=== PATIENT | female | born 1980 | race Two or more races ===

== ENCOUNTER 2017-07-30 22:09 | Inpatient (IN) | payer OTHER ==
[~2017-07-30] VITALS: Ht 160 cm; Wt 71.1 kg
[2017-07-30] MEDS ORDERED: DIVA250T7 (22:19)
[2017-07-30] MEDS ORDERED: QUET1TAB8 PO (22:19)
[2017-07-30] MEDS ORDERED: TRIA1OI EXT (22:19)
[2017-07-30] MEDS ORDERED: OMEP20CA3 PO (22:19)
[2017-07-30] MEDS ORDERED: PANTOPRAZOLE 40MG INJ (PROTONIX) (C9113) IV ONE (22:45)
[2017-07-30] MEDS ORDERED: ONDANSETRON 4MG/2ML VIAL (J2405) IV ONE (22:45)
[2017-07-30] MEDS ORDERED: NS 1,000 ML IV ONE (22:45)
[2017-07-30 22:53] LABS: BASO # 0.1 10^3/uL (0.0-0.2); BASO % 0.6 % (0.0-1.0); EOS # 0.2 10^3/uL (0.0-0.50); LYMPH # 2.7 10^3/uL (1.5-4.5); LYMPH % 17.3 % (24.0-44.0); MEAN CORPUSCULAR HEMOGLOBIN 30.8 pg (27.0-33.0); MEAN CORPUSCULAR HGB CONC 35.1 g/dl (32.0-36.5); MEAN CORPUSCULAR VOLUME 87.7 fl (80.0-96.0); MONO # 0.7 10^3/uL (0.0-0.8); MONO % 4.4 % (0.0-5.0); NEUTROPHILS # 11.7 10^3/uL (1.8-7.7); NEUTROPHILS % 75.7 % (36.0-66.0); PLATELET COUNT, AUTOMATED 305 10^3/uL (150-450); WHITE BLOOD COUNT 15.4 10^3/uL (4.0-10.0)
[2017-07-30 23:09] LABS: CONTROL LINE HCG INT CTR LINE PRESENT
[2017-07-30 23:17] LABS: ALBUMIN 4.4 GM/DL (3.2-5.2); ALBUMIN/GLOBULIN RATIO 1.13 (1.00-1.93); ALKALINE PHOSPHATASE 134 U/L (45-117); ALT/SGPT 62 U/L (12-78); AMYLASE 71 U/L (25-115); ANION GAP 8 MEQ/L (8-16); AST/SGOT 30 U/L (7-37); BILIRUBIN,DIRECT < 0.1 MG/DL (0.0-0.2); BILIRUBIN,TOTAL 0.4 MG/DL (0.2-1.0); BLOOD UREA NITROGEN 8 MG/DL (7-18); CALCIUM LEVEL 9.1 MG/DL (8.5-10.1); CARBON DIOXIDE LEVEL 29 MEQ/L (21-32); CHLORIDE LEVEL 104 MEQ/L (98-107); GLOMERULAR FILTRATION RATE > 60.0 (>60); GLUCOSE, FASTING 131 MG/DL (70-105); POTASSIUM SERUM 4.2 MEQ/L (3.5-5.1); SODIUM LEVEL 141 MEQ/L (136-145); TOTAL PROTEIN 8.3 GM/DL (6.4-8.2)
[2017-07-30] MEDS ORDERED: MORPHINE 4 MG/ML 1ML SYRINGE IV ONE (23:30)
[2017-07-30] MEDS ORDERED: GI COCKTAIL 50ML BTL(HYOSCYAMINE/MAALOX/LIDOCAINE VISCOUS)(1:3:1) PO ONE (23:30)
[2017-07-31] MEDS ORDERED: MORPHINE 4 MG/ML 1ML SYRINGE IV ONE ×2 (01:15→02:45)
[2017-07-31] MEDS ORDERED: ISOVUE-370 76% 100ML VIAL (Q9967) As Ordered ONE (01:15)
[2017-07-31] MEDS ORDERED: METOCLOPRAMIDE INJ 10MG/2ML VIAL (J2765) IV ONE (01:15)
[2017-07-31] MEDS ORDERED: MORPHINE 2 MG/ML 1ML SYRINGE IV ONE (05:30)
[2017-07-31] MEDS ORDERED: PROMETHAZINE INJ 25 MG/ML VIAL (J2550) IV ONE (05:30)
[2017-07-31] MEDS: NS 1,000 ML IV SCH ×3 (06:19→20:05)
[2017-07-31 06:26] LABS: BASO # 0.1 10^3/uL (0.0-0.2); BASO % 0.4 % (0.0-1.0); EOS % 0.2 % (0.0-3.0); IMMATURE GRANULOCYTE % 0.7 % (0-0); LYMPH # 1.8 10^3/uL (1.5-4.5); LYMPH % 13.9 % (24.0-44.0); MEAN CORPUSCULAR HEMOGLOBIN 30.6 pg (27.0-33.0); MEAN CORPUSCULAR HGB CONC 35.1 g/dl (32.0-36.5); MEAN CORPUSCULAR VOLUME 87.4 fl (80.0-96.0); MONO # 0.4 10^3/uL (0.0-0.8); MONO % 3.3 % (0.0-5.0); NEUTROPHILS # 10.7 10^3/uL (1.8-7.7); NEUTROPHILS % 81.5 % (36.0-66.0); PLATELET COUNT, AUTOMATED 286 10^3/uL (150-450); RED CELL DISTRIBUTION WIDTH 12.9 % (11.5-14.5); WHITE BLOOD COUNT 13.1 10^3/uL (4.0-10.0)
[2017-07-31 06:51] LABS: ALBUMIN 3.8 GM/DL (3.2-5.2); ALBUMIN/GLOBULIN RATIO 1.06 (1.00-1.93); ALKALINE PHOSPHATASE 111 U/L (45-117); ALT/SGPT 58 U/L (12-78); ANION GAP 10 MEQ/L (8-16); AST/SGOT 31 U/L (7-37); BILIRUBIN,TOTAL 0.4 MG/DL (0.2-1.0); BLOOD UREA NITROGEN 7 MG/DL (7-18); CALCIUM LEVEL 8.3 MG/DL (8.5-10.1); CARBON DIOXIDE LEVEL 25 MEQ/L (21-32); CHLORIDE LEVEL 107 MEQ/L (98-107); CREATININE FOR GFR 0.69 MG/DL (0.55-1.02); GLOMERULAR FILTRATION RATE > 60.0 (>60); GLUCOSE, FASTING 129 MG/DL (70-105); POTASSIUM SERUM 4.1 MEQ/L (3.5-5.1); SODIUM LEVEL 142 MEQ/L (136-145); TOTAL PROTEIN 7.4 GM/DL (6.4-8.2)
--- NOTE | 2017-07-31 07:44 | HPE ---
DATE OF ADMISSION: 07/31/2017 Ms. Reynaga is a patient of [facility]. CHIEF COMPLAINT: Is abdominal pain. HISTORY OF PRESENT ILLNESS: This is 36-year-old ate at [employer] last evening. She thought that her soup tasted funny and so she ate only half of it. Upon leaving [employer] around 30 minutes later, developed cold sweats, crampy abdominal pain. She has vomited multiple, multiple times and had uncontrolled pain. She presented to the emergency department. Had a CT scan which was reviewed by the emergency room provider and the surgeon, and showed evidence of gastroenteritis. No evidence of obstruction and I was called for admission. Currently, she is still having abdominal pain, which she describes as a 6 out of 10 right now, last pain medication was at 2:45 a.m. She is nauseous. Has not had any loose bowel movements. Has had a soft bowel movement since she has been here. PAST MEDICAL HISTORY: Ectopic . Tubal ligation. Bipolar and depression. SOCIAL HISTORY: She smokes half a pack a day. She drinks alcohol. She is originally from [facility]. FAMILY HISTORY: Notable for her mother with diabetes. ALLERGIES: She has an allergy listed to amoxicillin. HOME MEDICATIONS: - omeprazole - quetiapine - triamcinolone cream for a rash. REVIEW OF SYSTEMS: Notable for no headache. No visual changes. She currently has a sore throat after vomiting. No neck pain. No cough. No shortness of breath. Otherwise is unremarkable. PHYSICAL EXAMINATION: Temperature 97.4, pulse 81, respiratory rate 18, blood pressure 119/55, 95% in room air. Input and output are not yet calculated. Weight 68.6 kg. Body mass index 26.8. She is awake. Appears quite anxious. Head is normocephalic. Sinus nontender. Pupils equal and reactive. Mucous membranes moist. Posterior oropharynx is quite erythematous without exudate. Neck is supple. No cervical or supraclavicular adenopathy. Breathing is symmetrical and rested. Heart is in a regular rhythm, not tachycardic. Radial pulses 2+. Capillary refill time less than 2 seconds. Abdomen is notable for hypoactive bowel sounds. Mild diffuse tenderness without rebound or guarding. Nondistended. No lower extremity edema. Labs available to review. White count 15.4, hemoglobin 16, and platelets of 3056. BUN is 8, creatinine 0.8, glucose 113. Alkaline phosphatase 134, total protein 8.3 with an albumin 4.4, lipase 135. HCG is negative. CT of he abdomen and pelvis shows partial small bowel obstruction, which does not match local interpretation by the general surgeon. ASSESSMENT: 36-year-old with suspected gastroenteritis, possibly developing ileus. The patient will be admitted for a two midnight hospital stay. PLAN: 1. GI: The patient will be nothing by mouth. Will be given pain medicine and antiemetics, IV fluids, and monitor clinically. 2. The patient has a history of an ectopic but hCG is negative. 3. The patient has underlying bipolar disorder and appears quite anxious, which is understandable in this setting. Will continue her home medications if she is able to keep them down. 4. The patient has an interesting gap noted between her total protein and albumin which is likely related to her vomiting but that warrants further workup if it persists. 5. The patient has an elevated white cell count, which is most likely reactive. 6. Deep venous thrombosis prophylaxis is ordered.
[2017-07-31] MEDS: MORPHINE 2 MG/ML 1ML SYRINGE IV PRN ×3 (08:28→19:06)
[2017-07-31] MEDS: NICOTINE 7 MG/24 HR TRANSDERMAL TD SCH (08:52)
[2017-07-31] MEDS: HEPARIN SOD (PORCINE) 5000 UNITS/ML VIAL SC SCH ×2 (08:52→20:03)
--- NOTE | 2017-07-31 09:10 | REP ---
ABDOMINAL SERIES: Supine and erect views of the right abdomen demonstrate no evidence of free intraperitoneal air and no compelling evidence for obstruction. There is a phlebolith in the right pelvis. The visualized osseous structures are unremarkable. An accompanying view of the chest demonstrates no acute infiltrate. The heart is normal in size. IMPRESSION: No evidence of free air or obstruction. Signed by Sabino Hays MD 07/31/2017 11:52 A
--- NOTE | 2017-07-31 09:48 | REPUSA ---
CLINICAL HISTORY: Abdominal pain. TECHNIQUE: Multiple axial, sagittal and coronal CT images were obtained through the abdomen and pelvi s after administration of oral and intravenous contrast material. COMMENTS: Comparison to prior exam on 04/04/2016. Fluid-filled mildly distended stomach. Fluid-filled dilated small bowel loops. Transition zone in the left lower quadrant. The liver is of uniform attenuation without mass or defect. There is no intra or extrahepatic biliary ductal dilatation. The spleen is normal. The gallbladder is within normal limits. The pancreas is of normal contour and attenuation characteristics. There is no evidence of adrenal mass. Both kidneys demonstrate prompt and equal nephrograms. The kidneys are normal in size, shape and conf iguration. There is no evidence of renal or ureteral mass. No renal or ureteral calculi are identifie d. There is no hydroureter or hydronephrosis. No evidence for appendicitis. There is no evidence of abdominal ascites or lymphadenopathy. There is no evidence of intrinsic or extrinsic bladder mass. There is no pelvic ascites or lymphadeno benoit. Images of the lung bases show no evidence of pleural or parenchymal mass. There are no pleural effusi ons. The bony structures are free of lytic or blastic lesions. Multilevel degenerative changes are seen in volving the thoracolumbar spine. Scattered calcifications are seen involving the aorta and major bran ches compatible with atherosclerosis. IMPRESSION: Partial small bowel obstruction. Transition zone in the left lower quadrant. No bowel perforation or pneumatosis intestinalis. Thank you for your kind referral of this patient.
[2017-07-31 11:18] VITALS: BP 134/66
[2017-07-31 14:00] VITALS: BP 138/87
[2017-07-31] MEDS: ONDANSETRON 4MG/2ML VIAL (J2405) IV PRN ×2 (14:03→20:03)
[2017-07-31 15:40] VITALS: BP 129/80
[2017-07-31] MEDS: QUEtiapine FUMARATE 100 MG TAB PO SCH (20:03)
[2017-07-31] MEDS: TRIAMCINOLONE ACET 0.1% OINTMENT 15 GM EXT SCH (20:04)
[2017-07-31 22:00] VITALS: BP 112/84
--- NOTE | 2017-08-01 01:23 | ECGEPIP ---
Stationary ECG Study [facility] Test Date: 2017-07-31 Pat Name: RICHELLE CHAVEZ Department: Room: [place] [address] Gender: F [employer]: VIRY : 1980 Requested By: SALEEM Xie Order Number: [id number] Reading MD: Saleem Romo Measurements Intervals Tell Rate: 88 P: 47 VT: 125 QRS: 39 QRSD: 98 T: 12 QT: 393 QTc: 476 Interpretive Statements SINUS RHYTHM Prolonged QTc Comparison tracing not on file Electronically Signed On 08-01-2017 1:23:16 EST by Saleem Romo
[2017-08-01 06:00] VITALS: BP 128/75
[2017-08-01 06:00] LABS: MEAN CORPUSCULAR HEMOGLOBIN 30.2 pg (27.0-33.0); MEAN CORPUSCULAR HGB CONC 34.5 g/dl (32.0-36.5); MEAN CORPUSCULAR VOLUME 87.5 fl (80.0-96.0); PLATELET COUNT, AUTOMATED 224 10^3/uL (150-450); RED CELL DISTRIBUTION WIDTH 13.1 % (11.5-14.5); WHITE BLOOD COUNT 8.4 10^3/uL (4.0-10.0)
[2017-08-01] MEDS: ACETAMINOPHEN TAB 650MG DOSE (2X325MG) PO PRN ×4 (06:05→17:45)
[2017-08-01] MEDS: NS 1,000 ML IV SCH (06:08)
[2017-08-01 06:24] LABS: ALBUMIN 3.1 GM/DL (3.2-5.2); ALBUMIN/GLOBULIN RATIO 0.97 (1.00-1.93); ALKALINE PHOSPHATASE 89 U/L (45-117); ALT/SGPT 59 U/L (12-78); ANION GAP 7 MEQ/L (8-16); AST/SGOT 39 U/L (7-37); BILIRUBIN,TOTAL 0.6 MG/DL (0.2-1.0); BLOOD UREA NITROGEN 9 MG/DL (7-18); CALCIUM LEVEL 7.7 MG/DL (8.5-10.1); CARBON DIOXIDE LEVEL 25 MEQ/L (21-32); CHLORIDE LEVEL 110 MEQ/L (98-107); CREATININE FOR GFR 0.58 MG/DL (0.55-1.02); GLOMERULAR FILTRATION RATE > 60.0 (>60); GLUCOSE, FASTING 96 MG/DL (70-105); MAGNESIUM LEVEL 2.1 MG/DL (1.8-2.4); POTASSIUM SERUM 3.8 MEQ/L (3.5-5.1); SODIUM LEVEL 142 MEQ/L (136-145); TOTAL PROTEIN 6.3 GM/DL (6.4-8.2)
[2017-08-01] MEDS: MORPHINE 2 MG/ML 1ML SYRINGE IV PRN ×2 (06:53→20:24)
[2017-08-01 06:59] LABS: ERYTHROCYTE SEDIMENTATION RATE 16 mm/hr (0-20)
[2017-08-01] MEDS: NICOTINE 7 MG/24 HR TRANSDERMAL TD SCH (09:00)
[2017-08-01] MEDS: HEPARIN SOD (PORCINE) 5000 UNITS/ML VIAL SC SCH ×2 (09:12→20:06)
--- NOTE | 2017-08-01 12:22 | CR ---
DATE OF CONSULTATION: 08/01/2017 REASON FOR CONSULTATION: Abnormal CAT scan, question bowel obstruction. BRIEF HISTORY OF PRESENT ILLNESS: The patient is a 36-year-old female who presents to the emergency room after having severe epigastric pain, nausea, vomiting about 1/2 hour after eating out at a restaurant. She ended up having multiple episodes of nausea and vomiting with uncontrolled pain, crampy abdominal pain at that time and since being admitted to the emergency room has been doing much better. She had a bowel movement on her admission and states overall her abdominal pain is much better. She feels mostly sore today. Her white counts returned normal at 8.4 and her vitals have been stable and this morning she has been afebrile. PAST MEDICAL HISTORY: Is history for bipolar disorder, history of tubal ligation, history of ectopic . PHYSICAL EXAM: Reveals a 36-year-old female who looks stated age. HEENT is unremarkable. Neck: Supple without adenopathy. Lungs are clear. Heart is regular. Abdomen is soft, nondistended. She has some mild discomfort with deep palpation, but no guarding, no rebound, no peritoneal signs. IMPRESSION AND PLAN: The patient had an abnormal CAT scan. She does have some dilated loops of small bowel on her study that are in the pelvis, although at this point she is nontender in this area and she most likely had an episode of enteritis associated with possible restaurant food that she ate, I would think at this point given the severity of her nausea and vomiting this was either a bacterial enteritis is the most likely etiology and that may be the etiology of her elevated white count which has decreased to normal today, but any case clinically she has improved. I agree with a clear liquid diet if she tolerates clears advance her to regular and discharge her to home. Surgical followup is not necessary at this point. She can followup with her primary care provider as an outpatient.
[2017-08-01 14:00] VITALS: BP 128/70
--- NOTE | 2017-08-01 16:50 | IPN ---
DATE: 08/01/2017 SUBJECTIVE: The patient is seen and examined in the room today. The patient stated her epigastric pain is improving. 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 OBJECTIVE: VITAL SIGNS: Temperature is 97.7, pulse 83, respirations 18, blood pressure 112/84, pulse oximetry 98% on room air. GENERAL: No sign of acute distress. Alert and oriented times three. HEENT: Normocephalic, atraumatic. Extraocular motor grossly intact. CARDIOVASCULAR: S1, S2. Regular rate. LUNGS: Clear to auscultation bilaterally. ABDOMEN: Soft, mild discomfort to palpation. No rebound. Bowel sounds present. LABORATORY DATA: WBC 8.4, hemoglobin 13.3, hematocrit 38.5, platelet count 224. Sodium 142, potassium 3.8, chloride 110, carbon dioxide 25, BUN nine, creatinine 0.58, GFR greater than 60, fasting glucose 96, calcium 7.7, magnesium 2.1. Total bilirubin 0.6, AST 39, ALT 59, alkaline phosphatase is 89. C-reactive protein 1.22. Total protein 6.3, albumin 3.1. ASSESSMENT AND PLAN: 1. Acute abdominal pain. CT abdomen and pelvis result shows partial small bowel obstruction. General surgery is consulted. Clinically, the patient's abdominal pain is improving. Nausea and vomiting are also under better control. There is a possibility that the patient's abdominal pain with nausea and vomiting is related to gastroenteritis from the meal she ate previously. Will continue with current medical management. The patient is still on intravenous (IV) fluid. We will try to start diet as tolerated to assess or oral intake capacity. Since admission, the patient has not had any bowel movements. Today is day three. Per history, the patient did have a bowel movement prior to admission. 2. Bipolar and depression. Continue Seroquel. 3. History of tubal ligation due to ectopic . 4. Deep venous thrombosis (DVT) prophylaxis on heparin.
[2017-08-01] MEDS: QUEtiapine FUMARATE 100 MG TAB PO SCH (20:05)
[2017-08-01] MEDS: TRIAMCINOLONE ACET 0.1% OINTMENT 15 GM EXT SCH (20:06)
[2017-08-01 22:00] VITALS: BP 118/60
[2017-08-01 22:55] VITALS: BP 121/55
[2017-08-02 06:06] VITALS: BP 102/55
[2017-08-02 06:33] LABS: MEAN CORPUSCULAR HEMOGLOBIN 30.7 pg (27.0-33.0); MEAN CORPUSCULAR VOLUME 87.8 fl (80.0-96.0); PLATELET COUNT, AUTOMATED 254 10^3/uL (150-450); RED CELL DISTRIBUTION WIDTH 12.9 % (11.5-14.5); WHITE BLOOD COUNT 5.8 10^3/uL (4.0-10.0)
[2017-08-02 06:57] LABS: ALBUMIN 3.2 GM/DL (3.2-5.2); ALBUMIN/GLOBULIN RATIO 0.94 (1.00-1.93); ALKALINE PHOSPHATASE 106 U/L (45-117); ALT/SGPT 53 U/L (12-78); ANION GAP 7 MEQ/L (8-16); AST/SGOT 23 U/L (7-37); BILIRUBIN,TOTAL 0.2 MG/DL (0.2-1.0); BLOOD UREA NITROGEN 7 MG/DL (7-18); CALCIUM LEVEL 7.9 MG/DL (8.5-10.1); CARBON DIOXIDE LEVEL 26 MEQ/L (21-32); CHLORIDE LEVEL 109 MEQ/L (98-107); CREATININE FOR GFR 0.58 MG/DL (0.55-1.02); GLOMERULAR FILTRATION RATE > 60.0 (>60); GLUCOSE, FASTING 109 MG/DL (70-105); MAGNESIUM LEVEL 2.2 MG/DL (1.8-2.4); POTASSIUM SERUM 3.7 MEQ/L (3.5-5.1); SODIUM LEVEL 142 MEQ/L (136-145); TOTAL PROTEIN 6.6 GM/DL (6.4-8.2)
[2017-08-02 08:00] VITALS: BP 131/90
[2017-08-02] MEDS ORDERED: IBUP-1114 PO (08:09)
[2017-08-02] MEDS ORDERED: ZOFR20TA PO (08:09)
[2017-08-02] MEDS ORDERED: SENN8.6T7 PO (08:09)
[2017-08-02] MEDS ORDERED: ACET50TAOT PO (08:09)
[2017-08-02] MEDS: NICOTINE 7 MG/24 HR TRANSDERMAL TD SCH (08:10)
[2017-08-02] MEDS: ACETAMINOPHEN TAB 650MG DOSE (2X325MG) PO PRN (08:15)
[2017-08-02] MEDS: HEPARIN SOD (PORCINE) 5000 UNITS/ML VIAL SC SCH (08:16)
--- NOTE | 2017-08-02 19:29 | DSES ---
DATE OF ADMISSION: 07/31/2017 DATE OF DISCHARGE: 08/02/2017 PRIMARY CARE PROVIDER: Mirza Bravo. CONSULTANTS: General surgery. PROCEDURES: None. DISCHARGE DIAGNOSES: 1. Acute abdominal pain, most likely secondary to acute gastroenteritis. 2. Bipolar/depression. 3. History of ectopic and tubal ligation. HOSPITALIZATION COURSE: The patient is a 36-year-old female who presented to [facility] on 07/31/2017, for acute abdominal pain. The patient presented to the emergency room shortly after eating dinner at the [employer]. The patient developed abdominal pain with multiple episodes of vomiting. In the emergency room, CT abdomen and pelvis was obtained and showed a partial small bowel obstruction. Therefore, imaging studies were reviewed with on-called surgeon who does not feel the patient's presentation does not match the small bowel obstruction. The patient was started on pain medication and antiemetics and intravenous (IV) fluids. The patient was monitored clinically. The patient initially was placed nothing by mouth and symptoms controlled with bowel rest. White count resolved spontaneously without use of antibiotics. Later, general surgery, Dr. Hernandez was officially consulted, and the patient was most likely experiencing enteritis instead of partial small bowel obstruction. The patient's diet was advanced and the patient tolerated it well, and on 08/02/2017, the patient has returned to her baseline, and patient was determined medically stable for discharge with recommendation to followup with [facility]ravo in 7-10 days. On the day of discharge, temperature 97.2, pulse 95, respirations 18, blood pressure 131/90, pulse oximetry 98% in room air. LABORATORY DATA: On the day of discharge, WBC 5.8, hemoglobin 13.4, hematocrit 38.3, platelet count 254. Sodium 142, potassium 3.7, chloride 109, carbon dioxide 26, BUN seven, creatinine 0.58, GFR greater than 60, fasting glucose 109, calcium 7.9, magnesium 2.2. Total bilirubin 0.2, AST 23, ALT 53, alkaline phosphatase 106. Total protein is 6.6, album 3.2. IMAGING: CT of the abdomen and pelvis with IV contrast showed partial small bowel obstruction. No bowel perforation or pneumatosis intestinalis. DISCHARGE MEDICATIONS: - Tylenol 500 mg by mouth every six hours as needed for 10 days - ibuprofen 400 mg by mouth every six hours as needed for 10 days - Senna-S one tablet by mouth twice a day as needed for constipation - Zofran 4 mg by mouth every six hours as needed for nausea and vomiting - omeprazole 20 mg by mouth daily as needed - quetiapine 300 mg by mouth at bedtime DISCHARGE INSTRUCTIONS: Discontinue lines. Discharge home. Activity as tolerated. Diet as tolerated. The patient should followup with her primary care provider at [facility] in 7-10 days. CONDITION ON DISCHARGE: Stable. DISCHARGE TIME: Greater than 30 minutes.
== END 2017-08-02 09:00 | disposition home or self-care (01) | DRG 392 ==
LOC: M ED 22:09 → M ED INP 22:10 → OBSVTOIN 07-31 14:09 → M MSPAV 07-31 15:26 → M PED 08-01 23:02
PROVIDERS: ADMIT Internal Medicine; ATTEND Internal Medicine
DX: K52.9 Noninfective gastroenteritis and colitis, unspecified (principal); F17.210 Nicotine dependence, cigarettes, uncomplicated; F31.9 Bipolar disorder, unspecified; Z88.1 Allergy status to other antibiotic agents; Z79.899 Other long term (current) drug therapy; Z98.51 Tubal ligation status

== ENCOUNTER → 2017-10-15 | Outpatient (REF) | payer OTHER ==
[2017-10-15 17:57] LABS: FERRITIN 308 NG/ML (8-252)
== END ==
LOC: M LAB REF 16:30
DX: E80.20 Unspecified porphyria (principal)

== ENCOUNTER → 2017-10-29 | Outpatient (REF) | payer OTHER | LOC: M LAB REF 17:22 | DX: E80.20 Unspecified porphyria (principal) ==

== ENCOUNTER 2018-08-13 10:13 | Emergency (ER) | payer OTHER ==
[~2018-08-13] VITALS: Ht 160 cm; Wt 68.2 kg
[~2018-08-13 10:13] MED LIST: ACET500T15 PO; DIVA250T7; IBUP-1114 PO; OMEP20CA3 PO; QUET1TAB8 PO; SENN8.6T7 PO; TRIA1OI EXT; ZOFR4TAB16 PO
[2018-08-13] MEDS ORDERED: KETOROLAC 60 MG/2 ML VIAL (J1885) IM ONE (11:30)
[2018-08-13] MEDS ORDERED: METHOCARBAMOL 750 MG TAB PO ONE (11:30)
--- NOTE | 2018-08-13 12:18 | REP ---
LUMBAR SPINE, FIVE VIEWS: HISTORY: Back pain. There is no acute fracture or subluxation. The intervertebral discs are normal in height. The facet joints are normal in appearance. There is loss of the normal lordotic curve. IMPRESSION: There is no acute fracture or subluxation. Electronically Signed by Weston Urbina MD 08/13/2018 12:19 P
[2018-08-13] MEDS ORDERED: diazePAM 5 MG TAB PO ONE (12:30)
[2018-08-13 13:23] VITALS: BP 121/64
[2018-08-13] MEDS ORDERED: ROBA500T PO (13:24)
[2018-08-13] MEDS ORDERED: VOLT1GEL15 TOP (13:25)
[2018-08-13] MEDS ORDERED: NAPR-50 PO (13:25)
== END 2018-08-13 13:36 | disposition home or self-care (01) ==
LOC: M ED 10:13
DX: M62.830 Muscle spasm of back (principal); M54.5 Low back pain; Z79.899 Other long term (current) drug therapy; Z88.0 Allergy status to penicillin; F17.210 Nicotine dependence, cigarettes, uncomplicated
CPT/HCPCS: 72110; 81001; 81025; 96372; 99284; J1885

== ENCOUNTER → 2018-10-12 | Outpatient (CLI) | payer OTHER ==
[~2018-10-12] MED LIST changes: +NAPR-50 PO; +ROBA500T PO; +VOLT1GEL15 TOP
--- NOTE | 2018-10-12 10:29 | REP ---
CHEST X-RAY: Two views. HISTORY: Shortness of breath. Fever, chills, cough. Influenza A. COMPARISON CHEST X-RAY: July 30, 2017. FINDINGS: The lungs are well inflated and free of infiltrate. Pleural angles are sharp. Cardiomediastinal silhouette is unremarkable. No bony abnormality is seen. Pulmonary vasculature is not increased. IMPRESSION: Negative chest x-ray. Electronically Signed by Gary Lemus MD 10/12/2018 11:15 A
== END ==
LOC: M LRY 09:49
PROVIDERS: ATTEND Physician Assistant
DX: J10.1 Influenza due to other identified influenza virus with other respiratory manifestations (principal); R50.9 Fever, unspecified; R05 Cough

== ENCOUNTER → 2018-10-12 | Outpatient (REF) | payer OTHER | LOC: M SFHCLERA 09:37 | PROVIDERS: ATTEND Physician Assistant | DX: J02.9 Acute pharyngitis, unspecified (principal) ==

== ENCOUNTER 2018-10-22 07:54 | Emergency (ER) | payer OTHER ==
[~2018-10-22] VITALS: Ht 160 cm; Wt 68.6 kg
[2018-10-22 07:56] VITALS: BP 131/80
== END 2018-10-22 08:36 | disposition home or self-care (01) ==
LOC: M ED 07:54
DX: K11.5 Sialolithiasis (principal); F31.9 Bipolar disorder, unspecified; F41.9 Anxiety disorder, unspecified; F17.210 Nicotine dependence, cigarettes, uncomplicated; Z88.0 Allergy status to penicillin

== ENCOUNTER 2019-02-24 09:18 | Day surgery (SDC) | payer OTHER ==
[~2019-02-24] VITALS: Ht 160 cm; Wt 70.0 kg
[~2019-02-24 09:18] MED LIST changes: +ACETAMINOPHEN 1000MG 100ML IV BTL (OFIRMEV) (J0131 PER 10MG) As Ordered ONE; +LIDOCAINE 2% INJ 100 MG/5 ML SDV (FOR ANES.) As Ordered ONE; +LR 1,000 ML IV ONE; +MECL1CHW PO; +MIDAZOLAM INJ 2 MG/2 ML VIAL (J2250) As Ordered ONE; -NAPR-50 PO; +NAPR-837 PO; -OMEP20CA3 PO; +OMEP20CA4 PO; +ONDANSETRON 4MG/2ML VIAL (J2405) As Ordered ONE; +PROPOFOL 200 MG/20 ML VIAL As Ordered ONE; +ROCURONIUM BROMIDE 50 MG/5 ML VIAL As Ordered ONE; +SENN1TAB41 PO; -SENN8.6T7 PO; +dexameTHASONE 4 MG/ML 1ML VIAL (J1100) As Ordered ONE; +fentaNYL 100 MCG/2 ML INJECTION (J3010) As Ordered ONE
[2019-02-24] MEDS ORDERED: LIDOCAINE W/EPINEPHRINE 1% 20ML VIAL As Ordered ONE (10:28)
[2019-02-24] MEDS ORDERED: BUPIVACAINE/EPIN 0.5% 30 ML VIAL As Ordered ONE (10:28)
[2019-02-24] MEDS ORDERED: fentaNYL 100 MCG/2 ML INJECTION (J3010) As Ordered ONE (11:01)
[2019-02-24] MEDS ORDERED: SUGAMMADEX SODIUM 500 MG/5 ML VIAL (BRIDION) As Ordered ONE (11:04)
[2019-02-24] MEDS ORDERED: LR 1,000 ML IV SCH ×2 (11:45)
[2019-02-24] MEDS ORDERED: ONDANSETRON 4MG/2ML VIAL (J2405) IV PRN (11:45)
[2019-02-24] MEDS ORDERED: METOCLOPRAMIDE INJ 10MG/2ML VIAL (J2765) IV PRN (11:45)
[2019-02-24] MEDS ORDERED: NORCO, ANEXSIA 5/325MG TABLET (HYDROcodone/ACETAMINOPHEN) PO PRN (11:45)
[2019-02-24] MEDS ORDERED: PERCOCET 5MG/325MG TAB As Ordered ONE (11:52)
[2019-02-24] MEDS: PERCOCET 5MG/325MG TAB PO PRN ×2 (11:55→12:25)
[2019-02-24] MEDS: fentaNYL 100 MCG/2 ML INJECTION (J3010) IV PRN ×4 (12:00→12:15)
[2019-02-24] MEDS ORDERED: METOCLOPRAMIDE INJ 10MG/2ML VIAL (J2765) As Ordered ONE (14:04)
[2019-02-24 14:35] VITALS: BP 129/84
--- NOTE | 2019-02-25 21:21 | RO ---
DATE OF PROCEDURE: 02/24/2019 PREPROCEDURE DIAGNOSIS: Chronic tonsillitis. POSTPROCEDURE DIAGNOSIS: Chronic tonsillitis. PROCEDURE: Tonsillectomy. SURGEON: Dr. Nicolas Alfaro SPRIGGER: ANESTHESIA: DESCRIPTION OF PROCEDURE: Under general anesthesia with the patient intubated, a Lopez-Beto mouth gag was inserted. The tonsil area was infiltrated with lidocaine, epinephrine and Marcaine. Using the cautery, I cauterized and removed the tonsils with cautery. I cauterized other areas that potentially would bleed. There was no bleeding. The patient tolerated the procedure well, was extubated and transferred to the recovery room in excellent condition.
== END 2019-02-24 14:40 | disposition home or self-care (01) ==
LOC: M SDC 09:18
PROVIDERS: ATTEND Otolaryngology
DX: J35.01 Chronic tonsillitis (principal); K21.9 Gastro-esophageal reflux disease without esophagitis; F31.9 Bipolar disorder, unspecified; F41.9 Anxiety disorder, unspecified; F17.210 Nicotine dependence, cigarettes, uncomplicated; Z79.899 Other long term (current) drug therapy; Z88.0 Allergy status to penicillin; Z91.018 Allergy to other foods
CPT/HCPCS: 42826; 88302; J0131; J1100; J2250; J2405; J2765; J3010